=== PATIENT | female | born 1970 | race Caucasian/White ===

== ENCOUNTER 2021-09-15 11:36 | Emergency (ER) | payer OTHER ==
[~2021-09-15] VITALS: Ht 152.4 cm; Wt 54.4 kg
[2021-09-15 11:51] VITALS: BP 155/95
[2021-09-15] MEDS ORDERED: METF-430 PO (12:03)
[2021-09-15] MEDS ORDERED: ONDA-188 PO (12:03)
[2021-09-15] MEDS ORDERED: HYDR25TA32 PO (12:03)
[2021-09-15] MEDS ORDERED: LISI-486 PO (12:03)
[2021-09-15] MEDS ORDERED: GLIP5TER PO (12:03)
--- NOTE | 2021-09-15 12:03 | NUR ---
Patient ambulated to bed 2.
[2021-09-15] MEDS ORDERED: MORPHINE SULFATE 4 MG/ML SYR IVP ONE (12:20)
[2021-09-15] MEDS ORDERED: ONDANSETRON 4 MG/2 ML VIAL IVP ONE (12:20)
--- NOTE | 2021-09-15 12:21 | NUR ---
51Y FEMALE BIB SELF WITH C/O ABDOMINAL PAIN X1 WEEK. PER PATIENT THE PAIN IS FELT THROUGHOUT HER ENTIRE ABDOMEN AND IS THROBBING/SHARP LIKE PAIN. PAIN IS CURRENTLY 03/28. PT +N/-V/-D AT THIS TIME. PT STATED SHE HAS BEEN ABLE TO EAT, "BUT FEELS FULL AND IS UNABLE TO EAT A LOT." ABDOMEN IS TENDER TO TOUCH, AND BOWEL SOUNDS ACTIVE. PT IS A&OX4, EQUAL CHEST RISE AND FALL. DENIES CP/SOB, FEVER/CHILLS. PMHx: DM, HLD, HTN, Anxiety, Vertigo Sx: DENIES
--- NOTE | 2021-09-15 12:30 | NUR ---
18 IV ESTABLISHED IN R AC AND CONVERTED TO SALINE LOCK
--- NOTE | 2021-09-15 12:32 | NUR ---
BLOOD WORK COLLECTED AND WALKED TO LAB
--- NOTE | 2021-09-15 12:58 | NUR ---
PT PROVIDED WITH WARM BLANKET BEDSIDE
[2021-09-15 13:25] LABS: BASOPHILS % (AUTO) 0.5 % (0.0-2.0); EOSINOPHILS # (AUTO) 0.1 K/uL (0-0.4); EOSINOPHILS % (AUTO) 0.7 % (0.0-4.0); HEMATOCRIT 44.3 % (36-48); HEMOGLOBIN 15.2 g/dL (12.0-16.0); LYMPHOCYTES # (AUTO) 2.1 K/uL (2.5-16.5); LYMPHOCYTES % (AUTO) 24.6 % (20.5-51.1); MEAN CORPUSCULAR HEMOGLOBIN 30 pg (27-31); MEAN CORPUSCULAR HGB CONC 34 g/dL (33-37); MEAN CORPUSCULAR VOLUME 86.7 fL (80-94); MONOCYTES # (AUTO) 0.4 K/uL (0.8-1.0); MONOCYTES % (AUTO) 4.9 % (1.7-9.3); NEUTROPHILS # (AUTO) 5.8 K/uL (1.8-7.7); NEUTROPHILS % (AUTO) 69.3 % (42.2-75.2); PLATELET COUNT (AUTO) 309 K/uL (140-450); RED BLOOD CELL COUNT(AUTO) 5.11 MIL/uL (4.20-5.40); RED CELL DISTRIBUTION WIDTH 12.5 % (11.6-13.7); WHITE BLOOD COUNT (AUTO) 8.4 K/uL (4.8-10.8)
[2021-09-15 13:56] LABS: ANION GAP 14.5 (8-16); CARBON DIOXIDE 26.7 mmol/L (21-32); CREATININE 0.7 mg/dL (0.6-1.3); POTASSIUM 4.2 mmol/L (3.5-5.1); TOTAL BILIRUBIN 0.8 mg/dL (0.0-1.0)
--- NOTE | 2021-09-15 14:17 | NUR ---
PT TAKEN TO CT VIA W/C
[2021-09-15 14:18] LABS: APPEARANCE,URINE CLEAR (CLEAR); BILIRUBIN,URINE 1+ (NEGATIVE); BLOOD, URINE NEGATIVE (NEGATIVE); COLOR,URINE YELLOW (YELLOW); LEUKOCYTE ESTERASE ,URINE NEGATIVE (NEGATIVE); NITRITE, URINE NEGATIVE (NEGATIVE); PH,URINE 7.5 (5.0-9.0); UGLUCOSE 3+ (NEGATIVE)
[2021-09-15 14:34] LABS: CALCIUM OXALATE CRYSTALS,UR None Seen /HPF (None Seen); COARSE GRANULAR CASTS,URINE None Seen /LPF (None Seen); FINE GRANULAR CASTS,URINE None Seen /LPF (None Seen); OTHER CASTS, URINE None Seen /LPF (None Seen); OTHER CRYSTALS,URINE None Seen /HPF (None Seen); RBC,URINE 0-5 /HPF (0-5); RED BLOOD CELL CASTS,URINE None Seen /LPF (None Seen); TRICHOMONAS,URINE None Seen /HPF (None Seen); TRIPLE PHOSPHATE CRYSTAL,UR None Seen /HPF (None Seen); URIC ACID CRYSTALS,URINE None Seen /HPF (None Seen); URINE AMORPHOUS URATE None Seen /HPF (None Seen); WAXY CASTS,URINE None Seen /LPF (None Seen); WBC,URINE 0-5 /HPF (0-5); YEAST,URINE Few /HPF (None Seen)
[2021-09-15 14:35] LABS: HYALINE CASTS, URINE 0-10 /LPF (None Seen)
--- NOTE | 2021-09-15 14:38 | NUR ---
PT RETURNED TO BED [address] VIA W/C
[2021-09-15] MEDS ORDERED: ONDA8TAB87 PO (15:27)
[2021-09-15] MEDS ORDERED: OMEP40EC24 PO (15:27)
[2021-09-15] MEDS ORDERED: IBUP-2213 PO (15:27)
[2021-09-15] MEDS ORDERED: ACET-8386 PO (15:27)
--- NOTE | 2021-09-15 15:51 | NUR ---
Note devan in EDM - 09/15/21 at 1557 by [email or web address] Patient discharged with v/s stable. Written and verbal after care instructions given and explained. Patient alert, oriented and verbalized understanding of instructions. Ambulatory with steady gait. All questions addressed prior to discharge. ID band removed. Patient advised to follow up with PMD. Rx of zofran, omeprazole, ibuprofen, hydrocodone/acetaminophen given. Patient educated on indication of medication including possible reaction and side effects. Opportunity to ask questions provided and answered.
[2021-09-15] MEDS ORDERED: ONDANSETRON 4 MG ODT PO ONE ×2 (15:55)
--- NOTE | 2021-09-15 15:55 | NUR ---
PT REQUESTING ZOFRAN FOR NAUSEA BEFORE HEADING HOME. ER MD MADE AWARE AND PLACED ORDER
[2021-09-15] MEDS ORDERED: ONDANSETRON 4 MG ODT ONE (15:56)
[2021-09-15 16:04] VITALS: BP 121/63
--- NOTE | 2021-09-15 16:05 | NUR ---
Patient discharged with v/s stable. Written and verbal after care instructions given and explained. Patient alert, oriented and verbalized understanding of instructions. Ambulatory with steady gait. All questions addressed prior to discharge. ID band removed. Patient advised to follow up with PMD. Rx of zofran, omeprazole, ibuprofen, hydrocodone/acetaminophen given. Patient educated on indication of medication including possible reaction and side effects. Opportunity to ask questions provided and answered.
== END 2021-09-15 16:05 | disposition home or self-care (01) ==
LOC: MED 11:36
DX: R10.84 Generalized abdominal pain (principal); E11.9 Type 2 diabetes mellitus without complications; I10 Essential (primary) hypertension; F41.9 Anxiety disorder, unspecified; E78.5 Hyperlipidemia, unspecified; Z79.899 Other long term (current) drug therapy; Z79.1 Long term (current) use of non-steroidal anti-inflammatories (NSAID); Z79.891 Long term (current) use of opiate analgesic
CPT/HCPCS: 36415; 74177; 80053; 81001; 81025; 82948; 83690; 84703; 85025; 87086; 96374; 96375; 99285; J2270; J2405; Q0162; Q9967

== ENCOUNTER 2021-09-21 08:28 | Emergency (ER) | payer OTHER ==
[~2021-09-21] VITALS: Ht 152.4 cm; Wt 53.6 kg
[~2021-09-21 08:28] MED LIST: ACET-8386 PO; GLIP5TER PO; HYDR25TA32 PO; IBUP-2213 PO; LISI-486 PO; METF-430 PO; OMEP40EC24 PO; ONDA-188 PO; ONDA8TAB87 PO
[2021-09-21 08:44] VITALS: BP 127/90
[2021-09-21] MEDS ORDERED: NACL 0.9% 1,000 ML IV ONE (09:40)
[2021-09-21] MEDS ORDERED: FAMOTIDINE 20 MG/2 ML VIAL IVP ONE (09:40)
[2021-09-21] MEDS ORDERED: METOCLOPRAMIDE 10 MG/2 ML INJ VIAL IVP ONE (09:40)
[2021-09-21 10:12] LABS: BASOPHILS % (AUTO) 0.4 % (0.0-2.0); EOSINOPHILS % (AUTO) 0.6 % (0.0-4.0); HEMATOCRIT 42.8 % (36-48); HEMOGLOBIN 14.8 g/dL (12.0-16.0); LYMPHOCYTES % (AUTO) 34.1 % (20.5-51.1); MEAN CORPUSCULAR HEMOGLOBIN 30 pg (27-31); MEAN CORPUSCULAR HGB CONC 35 g/dL (33-37); MEAN CORPUSCULAR VOLUME 86.9 fL (80-94); MONOCYTES # (AUTO) 0.3 K/uL (0.8-1.0); MONOCYTES % (AUTO) 4.8 % (1.7-9.3); NEUTROPHILS # (AUTO) 3.5 K/uL (1.8-7.7); NEUTROPHILS % (AUTO) 60.1 % (42.2-75.2); PLATELET COUNT (AUTO) 308 K/uL (140-450); RED BLOOD CELL COUNT(AUTO) 4.93 MIL/uL (4.20-5.40); RED CELL DISTRIBUTION WIDTH 12.6 % (11.6-13.7); WHITE BLOOD COUNT (AUTO) 5.8 K/uL (4.8-10.8)
[2021-09-21 10:39] LABS: ALBUMIN 4.1 g/dL (3.4-5.0); ANION GAP 14.2 (8-16); CARBON DIOXIDE 27.1 mmol/L (21-32); CREATININE 0.9 mg/dL (0.6-1.3); POTASSIUM 4.3 mmol/L (3.5-5.1); TOTAL BILIRUBIN 0.7 mg/dL (0.0-1.0)
[2021-09-21] MEDS ORDERED: METO-485 PO (10:58)
[2021-09-21 11:03] VITALS: BP 134/87
== END 2021-09-21 11:10 | disposition home or self-care (01) ==
LOC: MED 08:28
DX: E11.9 Type 2 diabetes mellitus without complications (principal); R10.84 Generalized abdominal pain; R51.9 Headache, unspecified; R53.1 Weakness; R07.9 Chest pain, unspecified; R11.0 Nausea; I10 Essential (primary) hypertension; Z98.51 Tubal ligation status; Z79.899 Other long term (current) drug therapy; Z79.1 Long term (current) use of non-steroidal anti-inflammatories (NSAID); Z79.891 Long term (current) use of opiate analgesic
CPT/HCPCS: 36415; 80053; 83690; 85025; 93005; 96361; 96374; 96375; 99284; J2765; J3490; J7030